=== PATIENT | male | born 1980 | race Native Hawaiian/Other Pacific Islander ===

== ENCOUNTER → 2019-03-05 | Outpatient (CLI) | payer OTHER ==
--- NOTE | 2019-03-09 23:21 | SLEEPHOME ---
DATE OF PROCEDURE: 03/05/2019 ORDERED BY: JACLYN Michelle Diagnostic home sleep testing was performed due to concern for the obstructive sleep apnea syndrome in this patient with a history of excessive somnolence and nonrestorative sleep who has comorbidities of atrial fibrillation. For testing a nocturnal T3 respiratory monitoring device was used. Continuous record made of pulse, oxygen saturation, airflow, chest, abdominal strain and body position. 9 hours and 59 minutes of data were reviewed. There were 9 hours and 32 minutes marked as time in bed. During the interval marked time in bed, there were 166 respiratory events identified of 10 seconds in duration or greater for a respiratory disturbance index of 17.4. The events were primarily obstructive. Pulse rate and saturation data were lost as the probe became dislodged early in the study. Testing was performed in both the supine and nonsupine positions. IMPRESSION: Abnormal home sleep testing with repetitive respiratory events and a respiratory event index of 17.4 is consistent with the obstructive sleep apnea syndrome. RECOMMENDATIONS: The patient should be encouraged to undergo a formal sleep evaluation and in laboratory pressure titration.
== END ==
LOC: M SLEEP HO 13:31
PROVIDERS: ATTEND Nurse Practitioner Family
DX: R40.0 Somnolence (principal)